=== PATIENT | female | born 1945 | race Two or more races ===

== ENCOUNTER 2021-06-11 00:44 | Emergency (ER) | payer OTHER ==
[~2021-06-11] VITALS: Ht 121.9 cm; Wt 59.0 kg
[2021-06-11] MEDS ORDERED: ZOCOR20 MG (01:27)
[2021-06-11] MEDS ORDERED: KETO10TA2 PO (05:15)
== END 2021-06-11 06:10 ==
LOC: ER 00:44
DX: M24.412 Recurrent dislocation, left shoulder (principal)